=== PATIENT | female | born 1945 | race Caucasian/White ===

== ENCOUNTER 2016-12-29 17:04 | Observation (INO) | payer OTHER ==
[~2016-12-29] VITALS: Ht 162.6 cm; Wt 89.3 kg
--- NOTE | 2016-12-29 17:55 | DIAGNOSTIC IMAGING REPORT ---
PROCEDURE: XR CHEST 2 VIEW INDICATION: CHEST PAIN TECHNIQUE: PA and lateral views. COMPARISON: Chest 05/26/2014 FINDINGS: The lungs are clear. Cardiovascular structures are normal. Bony thorax is unremarkable. No significant interval change. IMPRESSION: 1. Negative chest.
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
--- NOTE | 2016-12-29 18:39 | ED ORDER SUMMARY ---
..... Patient: ULISES MONK OrderSheet [facility] VisitID: [id number] [address] [place] [address] 71y, F Registration Date/Time: 12/29/2016 ORDER SHEET Weight: 81.6 kg (stated) Allergies: Penicillin, Lorazepam, Narcotics GENERAL ORDERS: Chest 2V Urgent (17:12/29/2016 PHutchinson DO) (Ack 17:29 KHoerner) (18:01 ASchmuck) Degreaser Operator (Continuous) (17:12/29/2016 PHutchinson DO) (17:28 ASchmuck) UA-Culture if indicated Urgent (17:12/29/2016 PHutchinson DO) (Ack 17:26 KHoerner) (19:02 ASchmuck) Cardiac Panel Stat (17:12/29/2016 PHutchinson DO) (Ack 17:26 KHoerner) (17:30 ASchmuck) BNP Urgent (17:12/29/2016 PHutchinson DO) (Ack 17:26 KHoerner) (17:30 ASchmuck) D-Dimer Urgent (17:12/29/2016 PHutchinson DO) (Ack 17:26 KHoerner) (17:30 ASchmuck) Amylase Urgent (17:12/29/2016 PHutchinson DO) (Ack 17:27 KHoerner) (17:30 ASchmuck) PT with INR Urgent (17:12/29/2016 PHutchinson DO) (Ack 17:29 KHoerner) (17:31 ASchmuck) Lipase Urgent (17:12/29/2016 PHutchinson DO) (Ack 17:27 KHoerner) (17:31 ASchmuck) Oxygen (2 L/min) (NC) (17:12/29/2016 PHutchinson DO) (17:28 ASchmuck) Pulse oximeter (17:12/29/2016 PHutchinson DO) (17:28 ASchmuck) EKG - ER Stat (17:12/29/2016 PHutchinson DO) (17:29 ASchmuck) Vitals (17:07 12/29/2016 [facility] DO) ([facility] Call (Place call to): (Dr Kelly) (18:22 12/29/2016 [facility]) (18[facility] MEDICATION ORDERS: Aspirin PO 325 mg (only if not yet taken) (17:07 12/29/2016 [facility] DO) (Cancelled: Physician Order17:36 [facility] NitroGLYCERIN Paste Topical 1 in. (NOW, to CW) (17:32 12/29/2016 [facility] DO) (Ack 17:36 [facility]) (18:[facility] GI Cocktail WHITE PO 30 mL with Lidocaine Viscous Mouth/Throat 15 mL, Maalox Plus Oral 15 mL (NOW) (17:32 12/29/2016 [facility]) (Ack 17:36 [facility] ([facility] IV FLUIDS: IV NS : initial bolus 500 mL (1000 mL/hr), then 250 mL/hr for X2 (NOW) (17:07 12/29/2016 [facility]) (Ack 17:36 [facility]) (18:00 AScuck) Protonix IVP 40mg 40 mg (Mix in NS 10ml over 2min) (17:33 12/29/2016 [facility]) (Ack 17:36 [facility]) (18:00 AScuck) Dilaudid IV 0.5 mg (HIGH ALERT MEDICATION, NOW) (19:42 12/29/2016 [facility]) (20:15 [facility]) Zofran IV 4 mg (NOW) (19:42 12/29/2016 [facility]) (20:15 [facility]) Benadryl IV 50 mg (NOW) (20:14 12/29/2016 [facility] verbal order read back to [facility]) (20:15 [facility]) ORDER SHEET NOTES: [Electronically signed by Markell Looney DO (21:19 12/29/2016)] [Electronically signed by Rocio Choe (21:44 12/29/2016)] [Electronically locked/signed by Rocio Choe (21:44 12/29/2016)]
--- NOTE | 2016-12-29 18:39 | ED CLINICAL REPORT ---
Clinical Report - Physicians/Mid Levels [facility] [address] [place] [address] 12/29/2016 17:06 Patient: ULISES MONK Time Seen: 17:06. Arrived- By ambulance. Historian- patient and EMS personnel. HISTORY OF PRESENT ILLNESS Chief Complaint: CHEST PAIN. At its maximum, severity described as moderate. When seen in the E.D., severity described as moderate. Modifying factors. Not worsened by anything. Not relieved by anything. This started today at about 07:00 AM and is still present. It was gradual in onset and has been constant and waxing/waning. Onset during light activity. It is described as dull and it is described as located in the right chest, central chest and left chest area. No radiation. No vomiting, difficulty breathing or diaphoresis. Similar symptoms previously: ( has had different chest pain, but has had some prior radicular pain from thoracic disc / nerve injury). Recent medical care: Not recently seen/assessed. REVIEW OF SYSTEMS The patient is post-menopausal. No fever, chills, cough, pedal edema or calf pain. No fainting episodes, headache, sore throat, blurred vision or abdominal pain. No black stools, difficulty with urination, skin rash, enlarged lymph nodes or bloody stools. All systems otherwise negative, except as recorded above. PAST HISTORY Problems: Arthritis. Back Pain. Depression. Mild COPD Surgeries: Appendectomy. Back Surgery. Hysterectomy. Knee Surgery. Oophorectomy. Salpingectomy. Tonsillectomy & Adenoidectomy. Medications: Vitamin D3 Oral. Spiriva HandiHaler Inhalation (takes occassionally). Magan red. Calcium Citrate + Oral. Multivitamins Oral. Aspir-81 Oral (Tablet Delayed Release 81 mg) 1 tablet, daily. Triazolam Oral 0.125 mg, at bedtime. TraZODone HCl Oral 50 mg, at bedtime. Sertraline HCl Oral 30 mg, daily. NIFEdipine Oral 30 mg, daily. Baclofen 20 mg, daily. Albuterol Sulfate Inhalation. Allergies: Lorazepam. Narcotics.(itching) (other than vicoden and dilaudid. Fentanyl gives angioedema.) Penicillin. SOCIAL HISTORY Occasional alcohol use. No drug use. Residence: [place]. Patient is employed. 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 ADDITIONAL NOTES The nursing notes have been reviewed. PHYSICAL EXAM Vital Signs: 12/29/2016 17:27 Temp: 98.4 F. 12/29/2016 17:24 BP: 139/84. HR: 80. RR: 20. O2 saturation: 94%. Appearance: Alert. Oriented X3. No acute distress. Eyes: Pupils equal, round and reactive to light. Eyes normal inspection. No scleral icterus or pale conjunctivae. ENT: Pharynx normal. Neck: Normal inspection. Neck supple. CVS: Normal heart rate and rhythm. Heart sounds normal. Pulses normal. Respiratory: No respiratory distress. Breath sounds normal. Chest nontender. No chest pain reproduced on physical exam, splinting, decreased air movement, rales or rhonchi. No wheezes. Abdomen: Soft and nontender. No mass. Back: The patient has a small surgical scar located in the upper right thoracic area. Skin: Skin warm and dry. Normal skin color. Normal skin turgor. Extremities: Extremities exhibit normal ROM. No lower extremity edema. Neuro: Oriented X 3. LABS, X-RAYS, AND EKG EKG: EKG time: (16:22 - DONE BY [facility]). Normal sinus rhythm. Normal P waves. Normal ASHUTOSH. Normal QRS complex. Normal axis. Non-specific ST segment / T wave abnormalities. Non-specific T wave flattening in lead aVL and V2. ID dep vs subtle ST elevation. The study has been interpreted contemporaneously by me. The EKG appears to be a good tracing. EKG #2: EKG time: (17:18). Normal sinus rhythm. Rate: 75. Normal P waves. Normal ASHUTOSH. Normal QRS complex. Normal axis. Non-specific ST segment / T wave abnormalities. ID Depression vs subtle ST elev inferiorly. EKG unchanged when compared with prior EKG. The study has been interpreted contemporaneously by me. The EKG appears to be a good tracing. Rhythm Strip #1: Normal sinus rhythm. Regular rhythm. Narrow QRS complexes. No ectopy. Chest X-ray: No acute disease. Normal lung markings present. Normal heart size. Mediastinum normal. Great vessels normal. No infiltrate. Views: PA and lateral. Technique: good. The X-rays were interpreted contemporaneously by me. Laboratory Tests: UA-Culture if indicated: (TYREL: 12/29/2016 19:01) ( [facility] 12/29[facility] 19[facility]43) Final results Test Result Flag Units (Reference) URINE COLOR YELLOW URINE APPEARANCE CLEAR URINE GLUCOSE NEGATIVE (NEGATIVE) URINE BILIRUBIN NEGATIVE (NEGATIVE) URINE KETONE NEGATIVE (NEGATIVE) URINE SPECIFIC GRAVITY 1.015 (1.010-1.030) URINE PH 5.5 (5.0-8.0) URINE PROTEIN NEGATIVE (NEGATIVE) URINE UROBILINOGEN 0.2 EU/dL (0.2-1.0) URINE NITRITE NEGATIVE (NEGATIVE) URINE BLOOD TRACE-INTACT (NEGATIVE) URINE LEUK ESTERASE POSITIVE (NEGATIVE) URINE RBC RARE rbc/hpf (0-1) URINE WBC 5-10 wbc/hpf (0-1) WITH CLUMPING URINE EPITHELIAL CELLS RARE EPI/hpf (0-5) URINE BACTERIA FEW (1+) (NONE SEEN) URINE COMMENT CULTURE INDICATED URINE CULTURES ARE SET-UP BASED ON THE FOLLOWING CRITERIA:POSITIVE NITRITEPOSITIVE LEUKOCYTE ESTERASEGREATER THAN 10 WHITE BLOOD CELLSMODERATE (2+) OR GREATER BACTERIA CBC w Diff: (TYREL: 12/29/2016 17:30) ( [facility] 12/29/2016 17:47) Final results Test Result Flag Units (Reference) WHITE BLOOD COUNT 8.9 K/uL (4.5-11.5) RED BLOOD COUNT 4.42 M/uL (4.00-5.20) HEMOGLOBIN 13.3 gm/dL (12.0-16.0) HEMATOCRIT 40.0 % (36.0-46.0) MEAN CELL VOLUME 90 fL (80-100) MEAN CORPUSCULAR HGB 30 pg (26-34) MEAN CORPUSCULAR HGB CONC 33 g/dL (31-37) RED CELL DISTRIBUTION WIDTH 13.3 % (11.6-14.8) PLATELET COUNT 221 K/uL (150-400) NEUTROPHIL % 78.5 H % (50-75) LYMPH % 12.4 L % (25-40) MONO % 7.7 % (3-14) EOSINOPHIL % 1.2 % (0-4) BASOPHIL % 0.2 % (0-2) PT with INR: (TYREL: 12/29/2016 17:30) ( [facility] 12/29/2016 18:09) Final results Test Result Flag Units (Reference) INR 0.9 (0.8-1.2) Low Intensity Therapy: INR 1.5-2.0 PT range 18.5-23.1Mod.Intensity Therapy: INR 2.0-3.0 PT range 23.1-31.5High Intensity Therapy: INR 2.5-3.5 PT range 27.4-35.5High Intensity Therapy 2: INR 3.0-4.0 PT range 31.5-39.3 D-DIMER QUANTITATIVE < 0.27 L ug/mLFEU (0.27-0.52) The primary value of this quantitative assay relates toits negative predictive value (i.e. exclusion) of pulmonaryembolism/deep vein thrombosis/DIC.Elevated levels of d-dimer may also occur with:, age, cancer, inflammation, liver disease,post-op, infection, hematoma, coronary disease, peripheralarteriopathy, bleeding disorders and thrombolytic treatment.Results should be correlated with other clinical andradiological data.Testing Methodology: Latex Immunoassay Troponin-I: (TYREL: 12/29/2016 20:30) ( [facility] 12/29/2016 20:58) Final results Test Result Flag Units (Reference) TROPONIN I <0.05 ng/mL (0.00-1.5) TROPONIN REFERENCE RANGE:<0.1 NEGATIVE0.1-1.5 INDETERMINANT>1.5 POSITIVE BNP: (TYREL: 12/29/2016 17:30) ( [facility] 12/29/2016 18:13) Final results Test Result Flag Units (Reference) B-TYPE NATRIURETIC PEPTIDE 31.1 pg/ml (5-100) CHEM 13 PANEL: (TYREL: 12/29/2016 17:30) ( [facility] 12/29/2016 18:11) Final results Test Result Flag Units (Reference) GLUCOSE 86 mg/dL (70-110) BUN 23 H mg/dL (7-18) CREATININE 0.8 mg/dL (0.6-1.3) Estimated GFR >60 mL/min Estimated GFR- >60 mL/min Note: Persistent reduction over 3 months in eGFR<60 mL/min/1.73 m2 defines CKD. Patients with eGFR values>=60 mL/min/1.73 m2 may also have CKD if evidence ofpersistent proteinuria. Additional information may be foundat www.kidney.org. SODIUM 140 mmol/L (136-145) POTASSIUM 4.1 mmol/L (3.5-5.1) CHLORIDE 105 mmol/L (98-107) CARBON DIOXIDE 29 mmol/L (21-32) CALCIUM 8.7 mg/dL (8.5-10.1) TOTAL PROTEIN 7.6 g/dL (6.4-8.2) ALBUMIN 3.4 g/dL (3.3-5.0) BILIRUBIN, TOTAL 0.2 mg/dL (0.0-1.0) ALKALINE PHOSPHATASE 86 U/L (46-116) AST (SGOT) 21 U/L (15-37) ALT (SGPT) 33 U/L (12-78) MAGNESIUM 2.1 mg/dL (1.8-2.4) LIPASE 191 U/L (73-393) AMYLASE 43 U/L (25-115) CPK 34 U/L (24-260) TROPONIN I <0.05 L ng/mL (0.00-1.5) TROPONIN REFERENCE RANGE:<0.1 NEGATIVE0.1-1.5 INDETERMINANT>1.5 POSITIVE . Microbiology: Urine culture ordered. Pulse Oximetry: 12/29/2016 17:24 O2 saturation: 94%. (FIO2 - room air). Interpretation: hypoxemia. PROGRESS AND PROCEDURES Course of Care: GI Cocktail 30 mL PO given. Nitroglycerin 1 inch paste given. ASA 324 mg - given prior to arrival PO given. Benadryl 50 mg IVP given. Zofran 4 mg IVP given. Protonix 40 mg IVP given. Lovenox 80 mg subQ given. Dilaudid 0.[address] Baeza recommends usual rule out ACS procedure with repeat enzymes, ecg and hopefully echocardiogram (mild ID depression) 20:00 12/29/16. Still mild chest discomfort of unclear etiology. Improved after dilaudid and benadryl. Urine results back after pt admitted. Will wait for culture before starting abx - per Dr Florian. Discussed case with on-call health care provider, (Iveth (cardiology) call returned 18:33). Reviewed test results. Agreed upon treatment plan. Discussed case with health care provider (Anival - discussed case in person - requests that I consult mainframe applications developer cardiology for subtle ecg changes). Patient/family counseled. Old ED records reviewed. Disposition: Observation in Acute Care. Condition: stable and improved. CLINICAL IMPRESSION Precordial chest pain .12 lead EKG performed. Possible acute urinary tract infection with cystitis. INSTRUCTIONS Follow-up with: Ariane Lazaro MD, Cardiology, , [facility] - Cardiology, [address] [place] [address] [address] [facility], [place] [phone] (Electronically signed by Markell Looney DO 12/29/2016 21:19)
--- NOTE | 2016-12-29 18:39 | ED ORDER SUMMARY ---
..... Patient: ULISES MONK OrderSheet [facility] VisitID: [id number] [address] [place] [address] 71y, F Registration Date/Time: 12/29/2016 ORDER SHEET Weight: 81.6 kg (stated) Allergies: Penicillin, Lorazepam, Narcotics GENERAL ORDERS: Chest 2V Urgent (17:12/29/2016 PHutchinson DO) (Ack 17:29 KHoerner) (18:01 ASchmuck) Gyroscopic Instrument Mechanic (Continuous) (17:12/29/2016 PHutchinson DO) (17:28 ASchmuck) UA-Culture if indicated Urgent (17:12/29/2016 PHutchinson DO) (Ack 17:26 KHoerner) (19:02 ASchmuck) Cardiac Panel Stat (17:12/29/2016 PHutchinson DO) (Ack 17:26 KHoerner) (17:30 ASchmuck) BNP Urgent (17:12/29/2016 PHutchinson DO) (Ack 17:26 KHoerner) (17:30 ASchmuck) D-Dimer Urgent (17:12/29/2016 PHutchinson DO) (Ack 17:26 KHoerner) (17:30 ASchmuck) Amylase Urgent (17:12/29/2016 PHutchinson DO) (Ack 17:27 KHoerner) (17:30 ASchmuck) PT with INR Urgent (17:12/29/2016 PHutchinson DO) (Ack 17:29 KHoerner) (17:31 ASchmuck) Lipase Urgent (17:12/29/2016 PHutchinson DO) (Ack 17:27 KHoerner) (17:31 ASchmuck) Oxygen (2 L/min) (NC) (17:12/29/2016 PHutchinson DO) (17:28 ASchmuck) Pulse oximeter (17:12/29/2016 PHutchinson DO) (17:28 ASchmuck) EKG - ER Stat (17:12/29/2016 PHutchinson DO) (17:29 ASchmuck) Vitals (17:07 12/29/2016 [facility] DO) ([facility] Call (Place call to): (Dr Kelly) (18:22 12/29/2016 [facility]) [facility] MEDICATION ORDERS: Aspirin PO 325 mg (only if not yet taken) (17:07 12/29/2016 [facility] DO) (Cancelled: Physician Order17:36 [facility] NitroGLYCERIN Paste Topical 1 in. (NOW, to CW) (17:32 12/29/2016 [facility] DO) (Ack 17:36 [facility]) (18:[facility] GI Cocktail WHITE PO 30 mL with Lidocaine Viscous Mouth/Throat 15 mL, Maalox Plus Oral 15 mL (NOW) (17:32 12/29/2016 [facility]) (Ack 17:36 [facility] (18:00 [facility] IV FLUIDS: IV NS : initial bolus 500 mL (1000 mL/hr), then 250 mL/hr for X2 (NOW) (17:07 12/29/2016 [facility]) (Ack 17:36 [facility]) (18:00 AScuck) Protonix IVP 40mg 40 mg (Mix in NS 10ml over 2min) (17:33 12/29/2016 [facility]) (Ack 17:36 [facility]) (18:00 AScuck) Dilaudid IV 0.5 mg (HIGH ALERT MEDICATION, NOW) (19:42 12/29/2016 [facility]) (20:15 [facility]) Zofran IV 4 mg (NOW) (19:42 12/29/2016 [facility]) (20:15 [facility]) Benadryl IV 50 mg (NOW) (20:14 12/29/2016 [facility] verbal order read back to [facility]) (20:15 [facility]) ORDER SHEET NOTES: [Electronically signed by Markell Looney DO (21:19 12/29/2016)] [Electronically signed by Rocio Choe (21:44 12/29/2016)] [Electronically locked/signed by Rocio Choe (21:44 12/29/2016)]
--- NOTE | 2016-12-29 18:39 | ED CLINICAL REPORT ---
Clinical Report - Physicians/Mid Levels [facility] [address] [place] [address] 12/29/2016 17:06 Patient: ULISES MONK Time Seen: 17:06. Arrived- By ambulance. Historian- patient and EMS personnel. HISTORY OF PRESENT ILLNESS Chief Complaint: CHEST PAIN. At its maximum, severity described as moderate. When seen in the E.D., severity described as moderate. Modifying factors. Not worsened by anything. Not relieved by anything. This started today at about 07:00 AM and is still present. It was gradual in onset and has been constant and waxing/waning. Onset during light activity. It is described as dull and it is described as located in the right chest, central chest and left chest area. No radiation. No vomiting, difficulty breathing or diaphoresis. Similar symptoms previously: ( has had different chest pain, but has had some prior radicular pain from thoracic disc / nerve injury). Recent medical care: Not recently seen/assessed. REVIEW OF SYSTEMS The patient is post-menopausal. No fever, chills, cough, pedal edema or calf pain. No fainting episodes, headache, sore throat, blurred vision or abdominal pain. No black stools, difficulty with urination, skin rash, enlarged lymph nodes or bloody stools. All systems otherwise negative, except as recorded above. PAST HISTORY Problems: Arthritis. Back Pain. Depression. Mild COPD Surgeries: Appendectomy. Back Surgery. Hysterectomy. Knee Surgery. Oophorectomy. Salpingectomy. Tonsillectomy & Adenoidectomy. Medications: Vitamin D3 Oral. Spiriva HandiHaler Inhalation (takes occassionally). Magan red. Calcium Citrate + Oral. Multivitamins Oral. Aspir-81 Oral (Tablet Delayed Release 81 mg) 1 tablet, daily. Triazolam Oral 0.125 mg, at bedtime. TraZODone HCl Oral 50 mg, at bedtime. Sertraline HCl Oral 30 mg, daily. NIFEdipine Oral 30 mg, daily. Baclofen 20 mg, daily. Albuterol Sulfate Inhalation. Allergies: Lorazepam. Narcotics.(itching) (other than vicoden and dilaudid. Fentanyl gives angioedema.) Penicillin. SOCIAL HISTORY Occasional alcohol use. No drug use. Residence: [place]. Patient is employed. 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 ADDITIONAL NOTES The nursing notes have been reviewed. PHYSICAL EXAM Vital Signs: 12/29/2016 17:27 Temp: 98.4 F. 12/29/2016 17:24 BP: 139/84. HR: 80. RR: 20. O2 saturation: 94%. Appearance: Alert. Oriented X3. No acute distress. Eyes: Pupils equal, round and reactive to light. Eyes normal inspection. No scleral icterus or pale conjunctivae. ENT: Pharynx normal. Neck: Normal inspection. Neck supple. CVS: Normal heart rate and rhythm. Heart sounds normal. Pulses normal. Respiratory: No respiratory distress. Breath sounds normal. Chest nontender. No chest pain reproduced on physical exam, splinting, decreased air movement, rales or rhonchi. No wheezes. Abdomen: Soft and nontender. No mass. Back: The patient has a small surgical scar located in the upper right thoracic area. Skin: Skin warm and dry. Normal skin color. Normal skin turgor. Extremities: Extremities exhibit normal ROM. No lower extremity edema. Neuro: Oriented X 3. LABS, X-RAYS, AND EKG EKG: EKG time: (16:22 - DONE BY [facility]). Normal sinus rhythm. Normal P waves. Normal ASHUTOSH. Normal QRS complex. Normal axis. Non-specific ST segment / T wave abnormalities. Non-specific T wave flattening in lead aVL and V2. TX dep vs subtle ST elevation. The study has been interpreted contemporaneously by me. The EKG appears to be a good tracing. EKG #2: EKG time: (17:18). Normal sinus rhythm. Rate: 75. Normal P waves. Normal ASHUTOSH. Normal QRS complex. Normal axis. Non-specific ST segment / T wave abnormalities. TX Depression vs subtle ST elev inferiorly. EKG unchanged when compared with prior EKG. The study has been interpreted contemporaneously by me. The EKG appears to be a good tracing. Rhythm Strip #1: Normal sinus rhythm. Regular rhythm. Narrow QRS complexes. No ectopy. Chest X-ray: No acute disease. Normal lung markings present. Normal heart size. Mediastinum normal. Great vessels normal. No infiltrate. Views: PA and lateral. Technique: good. The X-rays were interpreted contemporaneously by me. Laboratory Tests: UA-Culture if indicated: (TYREL: 12/29/2016 19:01) ( [facility] Final results Test Result Flag Units (Reference) URINE COLOR YELLOW URINE APPEARANCE CLEAR URINE GLUCOSE NEGATIVE (NEGATIVE) URINE BILIRUBIN NEGATIVE (NEGATIVE) URINE KETONE NEGATIVE (NEGATIVE) URINE SPECIFIC GRAVITY 1.015 (1.010-1.030) URINE PH 5.5 (5.0-8.0) URINE PROTEIN NEGATIVE (NEGATIVE) URINE UROBILINOGEN 0.2 EU/dL (0.2-1.0) URINE NITRITE NEGATIVE (NEGATIVE) URINE BLOOD TRACE-INTACT (NEGATIVE) URINE LEUK ESTERASE POSITIVE (NEGATIVE) URINE RBC RARE rbc/hpf (0-1) URINE WBC 5-10 wbc/hpf (0-1) WITH CLUMPING URINE EPITHELIAL CELLS RARE EPI/hpf (0-5) URINE BACTERIA FEW (1+) (NONE SEEN) URINE COMMENT CULTURE INDICATED URINE CULTURES ARE SET-UP BASED ON THE FOLLOWING CRITERIA:POSITIVE NITRITEPOSITIVE LEUKOCYTE ESTERASEGREATER THAN 10 WHITE BLOOD CELLSMODERATE (2+) OR GREATER BACTERIA CBC w Diff: (TYREL: 12/29/2016 17:30) ( [facility] 17[facility]47) Final results Test Result Flag Units (Reference) WHITE BLOOD COUNT 8.9 K/uL (4.5-11.5) RED BLOOD COUNT 4.42 M/uL (4.00-5.20) HEMOGLOBIN 13.3 gm/dL (12.0-16.0) HEMATOCRIT 40.0 % (36.0-46.0) MEAN CELL VOLUME 90 fL (80-100) MEAN CORPUSCULAR HGB 30 pg (26-34) MEAN CORPUSCULAR HGB CONC 33 g/dL (31-37) RED CELL DISTRIBUTION WIDTH 13.3 % (11.6-14.8) PLATELET COUNT 221 K/uL (150-400) NEUTROPHIL % 78.5 H % (50-75) LYMPH % 12.4 L % (25-40) MONO % 7.7 % (3-14) EOSINOPHIL % 1.2 % (0-4) BASOPHIL % 0.2 % (0-2) PT with INR: (TYREL: 12/29/2016 17:30) ( [facility] 12/29/2016 18:09) Final results Test Result Flag Units (Reference) INR 0.9 (0.8-1.2) Low Intensity Therapy: INR 1.5-2.0 PT range 18.5-23.1Mod.Intensity Therapy: INR 2.0-3.0 PT range 23.1-31.5High Intensity Therapy: INR 2.5-3.5 PT range 27.4-35.5High Intensity Therapy 2: INR 3.0-4.0 PT range 31.5-39.3 D-DIMER QUANTITATIVE < 0.27 L ug/mLFEU (0.27-0.52) The primary value of this quantitative assay relates toits negative predictive value (i.e. exclusion) of pulmonaryembolism/deep vein thrombosis/DIC.Elevated levels of d-dimer may also occur with:, age, cancer, inflammation, liver disease,post-op, infection, hematoma, coronary disease, peripheralarteriopathy, bleeding disorders and thrombolytic treatment.Results should be correlated with other clinical andradiological data.Testing Methodology: Latex Immunoassay Troponin-I: (TYREL: 12/29/2016 20:30) ( [facility] 12/29/2016 20:58) Final results Test Result Flag Units (Reference) TROPONIN I <0.05 ng/mL (0.00-1.5) TROPONIN REFERENCE RANGE:<0.1 NEGATIVE0.1-1.5 INDETERMINANT>1.5 POSITIVE BNP: (TYREL: 12/29/2016 17:30) ( [facility] 12/29/2016 18:13) Final results Test Result Flag Units (Reference) B-TYPE NATRIURETIC PEPTIDE 31.1 pg/ml (5-100) CHEM 13 PANEL: (TYREL: 12/29/2016 17:30) ( [facility] 12/29/2016 18:11) Final results Test Result Flag Units (Reference) GLUCOSE 86 mg/dL (70-110) BUN 23 H mg/dL (7-18) CREATININE 0.8 mg/dL (0.6-1.3) Estimated GFR >60 mL/min Estimated GFR- >60 mL/min Note: Persistent reduction over 3 months in eGFR<60 mL/min/1.73 m2 defines CKD. Patients with eGFR values>=60 mL/min/1.73 m2 may also have CKD if evidence ofpersistent proteinuria. Additional information may be foundat www.kidney.org. SODIUM 140 mmol/L (136-145) POTASSIUM 4.1 mmol/L (3.5-5.1) CHLORIDE 105 mmol/L (98-107) CARBON DIOXIDE 29 mmol/L (21-32) CALCIUM 8.7 mg/dL (8.5-10.1) TOTAL PROTEIN 7.6 g/dL (6.4-8.2) ALBUMIN 3.4 g/dL (3.3-5.0) BILIRUBIN, TOTAL 0.2 mg/dL (0.0-1.0) ALKALINE PHOSPHATASE 86 U/L (46-116) AST (SGOT) 21 U/L (15-37) ALT (SGPT) 33 U/L (12-78) MAGNESIUM 2.1 mg/dL (1.8-2.4) LIPASE 191 U/L (73-393) AMYLASE 43 U/L (25-115) CPK 34 U/L (24-260) TROPONIN I <0.05 L ng/mL (0.00-1.5) TROPONIN REFERENCE RANGE:<0.1 NEGATIVE0.1-1.5 INDETERMINANT>1.5 POSITIVE . Microbiology: Urine culture ordered. Pulse Oximetry: 12/29/2016 17:24 O2 saturation: 94%. (FIO2 - room air). Interpretation: hypoxemia. PROGRESS AND PROCEDURES Course of Care: GI Cocktail 30 mL PO given. Nitroglycerin 1 inch paste given. ASA 324 mg - given prior to arrival PO given. Benadryl 50 mg IVP given. Zofran 4 mg IVP given. Protonix 40 mg IVP given. Lovenox 80 mg subQ given. Dilaudid 0.[address] Baeza recommends usual rule out ACS procedure with repeat enzymes, ecg and hopefully echocardiogram (mild TX depression) 20:00 12/29/16. Still mild chest discomfort of unclear etiology. Improved after dilaudid and benadryl. Urine results back after pt admitted. Will wait for culture before starting abx - per Dr Florian. Discussed case with on-call health care provider, (Iveth (cardiology) call returned 18:33). Reviewed test results. Agreed upon treatment plan. Discussed case with health care provider (Anival - discussed case in person - requests that I consult psychologist personnel cardiology for subtle ecg changes). Patient/family counseled. Old ED records reviewed. Disposition: Observation in Acute Care. Condition: stable and improved. CLINICAL IMPRESSION Precordial chest pain .12 lead EKG performed. Possible acute urinary tract infection with cystitis. INSTRUCTIONS Follow-up with: Ariane Lazaro MD, Cardiology, , [facility] - Cardiology, [address] [place] [address] [address] [facility], [place] [phone] (Electronically signed by Markell Looney DO 12/29/2016 21:19)
--- NOTE | 2016-12-29 20:56 | HISTORY AND PHYSICAL ---
ADMITTED: 12/29/2016 CHIEF COMPLAINT: 1. Chest pain HISTORY OF PRESENT ILLNESS: This is a 71-year-old white female who developed the chest pain in the morning while she woke up. The pain was across the chest, but she says it goes to the back and is not sure whether originates from the back to the chest or from the chest to the back. Severity 3/10, ongoing. The patient states she was active in the last 3 weeks with the yard work and did a lot of lifting and pushing. The patient worsens with inspiration. Also has a mild tenderness in chest area. No sweats or palpitations, nausea or vomiting. No shortness of breath. No dizziness. 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 Surgical history: Remarkable for disk herniation repair, bilateral knee placement, foot surgery, hand surgery, hysterectomy, tonsillectomy and appendectomy. Hospitalization: Last one was 2006 for knee placement. MEDICATIONS: 1. Aspirin 81 mg daily. 2. Triazolam 0.125 mg at bedtime. 3. Trazodone 50 mg at bedtime. 4. Zoloft 30 mg daily. 5. Nifedipine 30 mg daily. 6. Baclofen 20 mg daily. 7. Albuterol inhaler 2 puffs 4 times a day. ALLERGIES: THE PATIENT ALLERGIC TO: 1. LORAZEPAM. 2. NARCOTICS EXCEPT DILAUDID AND VICODIN. 3. PENICILLIN. SOCIAL HISTORY: The patient is single, has no kids, lives with her sister. Smoking: One pack a day for 20 years, quit 2 years ago. No history of alcohol or drug abuse. FAMILY HISTORY: Noncontributory. REVIEW OF SYSTEMS: The patient has been losing weight. No difficulty with vision or hearing. No runny nose or congestion. No cough or sore throat. No nausea, vomiting, indigestion or abdominal pain. Normal regular bowel movements. No dysuria, frequency or incontinence. Complains of upper back pain, which is chronic. No headaches. No dizziness. No tingling, no numbness. No localized muscle weakness. No syncope. PHYSICAL EXAMINATION: VITAL SIGNS: Blood pressure is 139/84, pulse 80, respirations 20, oxygen saturation 94% on room air. GENERAL APPEARANCE: Well-developed, well-nourished, good body build, no acute distress. HEENT: Ears: Normal tympanic membranes. Mouth: Normal hypopharynx, no exudation, no erythema. Nose: Normal mucosa. NECK: Supple. No JVD. No carotid bruit. No palpable mass. SKIN: Warm and dry with good turgor. LUNGS: Clear to auscultation. No rhonchi, wheezing or crackles. HEART: Regular S1 and S2. No murmur. No S3 was heard. ABDOMEN: Soft, nontender. Bowel sounds are positive. EXTREMITIES: No edema. Good peripheral pulses. No signs of DVT or cyanosis. MUSCULOSKELETAL: Grossly within normal limits. NEUROLOGIC: Alert and oriented x3. Cranial nerves are grossly intact. No motor deficits. Pupils are equal, round, and reactive to light. Extraocular movements are intact. No nystagmus. No cerebellar signs. Deep tendon reflexes are bilateral and symmetric. LAB/IMAGING: Labs: EKG: Has some mild ST elevations and also mild MN depressions in the inferior leads, which is a little bit prominent compared to the EKG from 05/2014. White blood count is 8.9, hemoglobin is 13.3, hematocrit is 40 and platelet count is 221,000. INR is 0.9. BNP is 31. Glucose is 86, BUN is 23, creatinine 0.8, sodium is 140, potassium is 4.1, chloride is 105, CO2 is 29. Liver enzymes unremarkable. Troponin is less than 0.05. IMPRESSION: 1. Atypical chest pain. 2. Hypertension. 3. Chronic obstructive pulmonary disease. 4. Disk herniation in T-spine. PLAN: Dr. Looney had a discussion with Dr. Cardozo, a chapter relations administrator in [facility]. The patient to be admitted. Check the cardiac enzyme series and also have echocardiogram. The patient will have Dilaudid for the chest pain that responded to nitroglycerin. We will do cardiac enzyme series and continue aspirin and outpatient medication and we will admit to observation.
[2016-12-29 21:15] VITALS: BP 143/77
--- NOTE | 2016-12-29 21:45 | ED MAR SUMMARY ---
..... Medication Administration Record [facility] [address] [place] [address] Patient: ULISES MONK Visit ID: [id number] 71y, F Weight: 81.6 kg Height/Length: 64 in BMI: 30.9 ALLERGIES: Narcotics, Lorazepam, Penicillin Given 17:55 12/29/2016 Rocio Choe, Medication Administered: GI COCKTAIL WHITE [PO] (SIMETHICONE), Dose: 30 mL Oral Suspension PO. Medication Ordered: GI Cocktail WHITE PO 30 mL with Lidocaine Viscous Mouth/Throat 15 mL, Maalox Plus Oral 15 mL (NOW). Start 17:57 12/29/2016 Rocio Choe,, Stop 19:25 12/29/2016 Rocio Choe, Medication Administered: IV NS (SALINE), Dose: IV Fluids over 30 minute(s), Rate: 1000 mL/hr, Dispensed: 1000 mL bag, Site: #1 right hand. Medication Ordered: IV NS : initial bolus 500 mL (1000 mL/hr), then 250 mL/hr for X2 (NOW). Given 18:00 12/29/2016 Rocio Choe, Medication Administered: PROTONIX [IVP] (PANTOPRAZOLE SODIUM), Dose: 40 mg IVP over 3 minute(s), Site: #1 right hand. Medication Ordered: Protonix IVP 40mg 40 mg (Mix in NS 10ml over 2min). Given 18:03 12/29/2016 Rocio Choe, Medication Administered: NITROGLYCERIN PASTE [TOPICAL], Dose: 1 in. Paste Topical. Medication Ordered: NitroGLYCERIN Paste Topical 1 in. (NOW, to CW). Given 20:11 12/29/2016 Rocio Choe, Medication Administered: BENADRYL [IVP] (DIPHENHYDRAMINE HCL), Dose: 50 mg IVP over 1 minute(s), Site: #1 right hand. Medication Ordered: Benadryl IV 50 mg (NOW). Given 20:12 12/29/2016 Rocio Choe, Medication Administered: ZOFRAN [IVP] (ONDANSETRON HCL), Dose: 4 mg IVP over 1 minute(s), Site: #1 right hand. Medication Ordered: Zofran IV 4 mg (NOW). Given 20:14 12/29/2016 Rocio Choe, Medication Administered: DILAUDID [IVP] (HYDROMORPHONE HCL PF), Dose: 0.5 mg IVP over 30 second(s), Site: #1 right hand. Medication Ordered: Dilaudid IV 0.5 mg (HIGH ALERT MEDICATION, NOW).
--- NOTE | 2016-12-29 21:45 | ED DISCHARGE INSTRUCTIONS ---
Patient: ULISES MONK General Instructions [facility] VisitID: [id number] [address] [place] [address] 71y, F Registration Date/Time: 12/29/2016 Precordial chest pain .12 lead EKG performed. INSTRUCTIONS Follow-up with: Ariane Lazaro MD, Cardiology, , [facility] - Cardiology, [address] [place] [address], [place] [id number] (Electronically signed by Markell Looney DO 12/29/2016 21:19)
--- NOTE | 2016-12-29 21:45 | ED DISCHARGE INSTRUCTIONS ---
Patient: ULISES MONK General Instructions [facility] VisitID: [id number] [address] [place] [address] 71y, F Registration Date/Time: 12/29/2016 Precordial chest pain .12 lead EKG performed. INSTRUCTIONS Follow-up with: Ariane Lazaro MD, Cardiology, , [facility] - Cardiology, [address] [place] [address], [place] [id number] (Electronically signed by Markell Looney DO 12/29/2016 21:19)
--- NOTE | 2016-12-29 21:45 | ED MED RECONCILIATION SUMMARY ---
Patient: ULISES MONK Medication Reconciliation Report [facility] VisitID: [id number] [address] [place] [address] 71y, F Registration Date/Time: 12/29/2016 Weight: 81.6 kg Height/Length: 64 in. BMI: 30.9 ALLERGIES: Lorazepam, Narcotics, Penicillin The patient's Home Medications are listed below: THE FOLLOWING MEDICATIONS NEED TO BE RECONCILED: Albuterol Sulfate Inhalation Aspir-81 Oral (81 mg) 1 tablet, daily Baclofen 20 mg, daily Calcium Citrate + Oral Magan red Multivitamins Oral NIFEdipine Oral 30 mg, daily Sertraline HCl Oral 30 mg, daily Spiriva HandiHaler Inhalation, takes occassionally TraZODone HCl Oral 50 mg, at bedtime Triazolam Oral 0.125 mg, at bedtime Vitamin D3 Oral The source(s) of the original Home Medication information: patient The following Medications were given to the patient in the Emergency Department: IV NS IV Fluids bolus 0, then 1000 mL/hr, administered: 12/29/2016 5:57:00 PM GI COCKTAIL WHITE [PO] PO 30 mL, administered: 12/29/2016 5:55:00 PM PROTONIX [IVP] IVP 40 mg, administered: 12/29/2016 6:00:00 PM NITROGLYCERIN PASTE [TOPICAL] Topical 1 in., administered: 12/29/2016 6:03:00 PM Benadryl [IVP] IVP 50 mg, administered: 12/29/2016 8:11:00 PM Zofran [IVP] IVP 4 mg, administered: 12/29/2016 8:12:00 PM Dilaudid [IVP] IVP 0.5 mg, administered: 12/29/2016 8:14:00 PM The following Medications were prescribed to the patient: None.
--- NOTE | 2016-12-29 21:45 | ED MAR SUMMARY ---
..... Medication Administration Record [facility] [address] [place] [address] Patient: ULISES MONK Visit ID: [id number] 71y, F Weight: 81.6 kg Height/Length: 64 in BMI: 30.9 ALLERGIES: Narcotics, Lorazepam, Penicillin Given 17:55 12/29/2016 Rocio Choe, Medication Administered: GI COCKTAIL WHITE [PO] (SIMETHICONE), Dose: 30 mL Oral Suspension PO. Medication Ordered: GI Cocktail WHITE PO 30 mL with Lidocaine Viscous Mouth/Throat 15 mL, Maalox Plus Oral 15 mL (NOW). Start 17:57 12/29/2016 Rocio Choe,, Stop 19:25 12/29/2016 Rocio Choe, Medication Administered: IV NS (SALINE), Dose: IV Fluids over 30 minute(s), Rate: 1000 mL/hr, Dispensed: 1000 mL bag, Site: #1 right hand. Medication Ordered: IV NS : initial bolus 500 mL (1000 mL/hr), then 250 mL/hr for X2 (NOW). Given 18:00 12/29/2016 Rocio Choe, Medication Administered: PROTONIX [IVP] (PANTOPRAZOLE SODIUM), Dose: 40 mg IVP over 3 minute(s), Site: #1 right hand. Medication Ordered: Protonix IVP 40mg 40 mg (Mix in NS 10ml over 2min). Given 18:03 12/29/2016 Rocio Choe, Medication Administered: NITROGLYCERIN PASTE [TOPICAL], Dose: 1 in. Paste Topical. Medication Ordered: NitroGLYCERIN Paste Topical 1 in. (NOW, to CW). Given 20:11 12/29/2016 Rocio Choe, Medication Administered: BENADRYL [IVP] (DIPHENHYDRAMINE HCL), Dose: 50 mg IVP over 1 minute(s), Site: #1 right hand. Medication Ordered: Benadryl IV 50 mg (NOW). Given 20:12 12/29/2016 Rocio Choe, Medication Administered: ZOFRAN [IVP] (ONDANSETRON HCL), Dose: 4 mg IVP over 1 minute(s), Site: #1 right hand. Medication Ordered: Zofran IV 4 mg (NOW). Given 20:14 12/29/2016 Rocio Choe, Medication Administered: DILAUDID [IVP] (HYDROMORPHONE HCL PF), Dose: 0.5 mg IVP over 30 second(s), Site: #1 right hand. Medication Ordered: Dilaudid IV 0.5 mg (HIGH ALERT MEDICATION, NOW).
--- NOTE | 2016-12-29 21:45 | ED MED RECONCILIATION SUMMARY ---
Patient: ULISES MONK Medication Reconciliation Report [facility] VisitID: [id number] [address] [place] [address] 71y, F Registration Date/Time: 12/29/2016 Weight: 81.6 kg Height/Length: 64 in. BMI: 30.9 ALLERGIES: Lorazepam, Narcotics, Penicillin The patient's Home Medications are listed below: THE FOLLOWING MEDICATIONS NEED TO BE RECONCILED: Albuterol Sulfate Inhalation Aspir-81 Oral (81 mg) 1 tablet, daily Baclofen 20 mg, daily Calcium Citrate + Oral Magan red Multivitamins Oral NIFEdipine Oral 30 mg, daily Sertraline HCl Oral 30 mg, daily Spiriva HandiHaler Inhalation, takes occassionally TraZODone HCl Oral 50 mg, at bedtime Triazolam Oral 0.125 mg, at bedtime Vitamin D3 Oral The source(s) of the original Home Medication information: patient The following Medications were given to the patient in the Emergency Department: IV NS IV Fluids bolus 0, then 1000 mL/hr, administered: 12/29/2016 5:57:00 PM GI COCKTAIL WHITE [PO] PO 30 mL, administered: 12/29/2016 5:55:00 PM PROTONIX [IVP] IVP 40 mg, administered: 12/29/2016 6:00:00 PM NITROGLYCERIN PASTE [TOPICAL] Topical 1 in., administered: 12/29/2016 6:03:00 PM Benadryl [IVP] IVP 50 mg, administered: 12/29/2016 8:11:00 PM Zofran [IVP] IVP 4 mg, administered: 12/29/2016 8:12:00 PM Dilaudid [IVP] IVP 0.5 mg, administered: 12/29/2016 8:14:00 PM The following Medications were prescribed to the patient: None.
--- NOTE | 2016-12-29 22:12 | Progress Note ---
Subjective General ADVANCED CARE PLAN History of Present Illness This is a 71-year-old white female who developed the chest pain in the morning while she woke up. The pain was across the chest, but she says it goes to the back and is not sure whether originates from the back to the chest or from the chest to the back. Severity 09/29, ongoing. The patient states she was active in the last 3 weeks with the yard work and did a lot of lifting and pushing. The patient worsens with inspiration. Also has a mild tenderness in chest area. No sweats or palpitations, nausea or vomiting. No shortness of breath. No dizziness. A discussion was undertaken with the patient regarding previous advance care arrangements/decisions. The following advanced directives were noted by the patient and discussed with me at the time of admission. ADVANCED DIRECTIVES: 1. Living well:Yes 2. POLST: No 3. CODE STATUS: Full Code 4. Durable Power Transmission Operator Health care: Yes 5. Donor card: Yes The patient has expressed interest in pursuing full resuscitative efforts at the time of cardiopulmonary arrest. The patient has been placed on a FULL CODE STATUS. The patient's wishes were documented in the chart and orders regarding the patient's wishes entered into the [employer] system. The "Advance Care Plan Document" was not distributed to patient to discuss with her family. Less than 30 minutes was spent in performing the above tasks and documentation of the patient's advanced care plan.
[2016-12-29] MEDS ORDERED: ASPIRIN EC LOW81 MG PO (22:44)
[2016-12-29] MEDS ORDERED: ALBUTEROL HFA60 DOSE IN (22:44)
[2016-12-29] MEDS ORDERED: CAL-CITRATE150 MG (22:45)
[2016-12-29] MEDS ORDERED: BACLOFEN20 MG PO (22:45)
[2016-12-29] MEDS ORDERED: MULTIVITAMIN1 TAB PO (22:46)
[2016-12-29] MEDS ORDERED: NIFEDIPINE ER30 MG PO (22:47)
[2016-12-29] MEDS ORDERED: SERTRALINE HCL25 MG PO (22:47)
[2016-12-29] MEDS ORDERED: SPIRIVA RE1.25 MCG/A (22:48)
[2016-12-29] MEDS ORDERED: TRIAZOLAM0.125 MG PO (22:49)
[2016-12-29] MEDS ORDERED: VITAMIN D-31000 UNIT PO (22:49)
[2016-12-29] MEDS ORDERED: TRAZODONE HCL50 MG PO (22:49)
[2016-12-30 02:45] VITALS: BP 96/57
[2016-12-30 06:49] VITALS: BP 121/64
--- NOTE | 2016-12-30 09:24 | DISCHARGE SUMMARY ---
ADMIT DATE: 12/29/2016 DISCHARGE DATE: 12/30/2016 DISCHARGE DIAGNOSES: 1. Atypical chest pain. 2. Hypertension. 3. Chronic obstructive pulmonary disease. 4. Disk herniation of the T-spine BRIEF HISTORY: This is a 71-year-old white female who was admitted last night, presented with chest pain, has a pressure tightness across the chest on the upper chest actually, started the morning before the admission, continuous pain. The pain did not respond to nitroglycerin and was severity 3 out of 10, but responded to Dilaudid IV. The patient stated that she was active in the last 3 weeks with yard work and states that the pain gets worse with inspiration and mild tenderness in the chest area, which was reproducible. No sweats or palpitations. No nausea or vomiting, no shortness of breath or dizziness. HOSPITAL COURSE: The emergency room physician, Dr. Looney consulted with Dr. Crabtree, hand plug shaper in [facility]. The plan was to have patient observation with cardiac enzyme series and repeat EKG do echocardiogram. Right now, the patient is chest pain free since yesterday, no shortness of breath, no nausea or vomiting, palpitations or shortness of breath and doing fine, ambulating and would like to go home. Repeat EKG shows a stable EKG with early repolarization, which shows ST elevations in the inferior leads, but downsloping and also improving the SC depression. Cardiac enzymes series is negative. PHYSICAL EXAMINATION: VITAL SIGNS: Temperature is 98.0, pulse is 65, respirations 18, blood pressure 121/64, pulse oximetry is 95% on 1 liter of oxygen. LUNGS: Clear to auscultation. No rhonchi or wheezing. HEART: Regular S1, S2. No murmur. No S3. ABDOMEN: Soft, nontender. Bowel sounds are positive. EXTREMITIES: No edema. DISCHARGE INSTRUCTIONS/MEDICATIONS: The patient will be discharged home to follow up with Dr. Miranda in [place] as an outpatient within 1 week. The patient will also arrange an echocardiogram to be done as an outpatient since echocardiogram cannot be done during the weekend here. The patient's symptoms resolved completely and I do not see any reason to keep her just for the echocardiogram. The patient will follow up the same medications as before. 1. Aspirin 81 mg daily. 2. Triazolam 0.125 mg at bedtime. 3. Trazodone 50 mg at bedtime. 4. Zoloft 25 mg daily. 5. Nifedipine 30 mg daily. 6. Baclofen 25 mg daily. 7. Albuterol inhaler 2 puffs 4 times a day. 8. The patient will have another set of cardiac enzymes around 10:30 or 11 and if it is negative, the patient can be discharged home.
== END 2016-12-30 10:30 | disposition home or self-care (01) ==
LOC: ED SRH 17:04 → TRANS SRH 18:31 → ACUTE2 SRH 20:45
PROVIDERS: ADMIT Emergency Medicine
DX: R07.9 Chest pain, unspecified (principal); M51.24 Other intervertebral disc displacement, thoracic region; I10 Essential (primary) hypertension; J44.9 Chronic obstructive pulmonary disease, unspecified; Z87.891 Personal history of nicotine dependence
CPT/HCPCS: 29230; 29247; 29263; 90004; 90047; 90074; 90100; 90148; 90469; 90616; 91320; 91556; 92235; 92530; 92610; 92720; 94060; 95059

== ENCOUNTER 2017-01-11 12:42 | Outpatient (CLI) | payer OTHER ==
[~2017-01-11 12:42] MED LIST: ALBUTEROL HFA60 DOSE IN; ASPIRIN EC LOW81 MG PO; BACLOFEN20 MG PO; CAL-CITRATE150 MG; MULTIVITAMIN1 TAB PO; NIFEDIPINE ER30 MG PO; SERTRALINE HCL25 MG PO; SPIRIVA RE1.25 MCG/A; TRAZODONE HCL50 MG PO; TRIAZOLAM0.125 MG PO; VITAMIN D-31000 UNIT PO
--- NOTE | 2017-01-12 15:44 | DIAGNOSTIC IMAGING REPORT ---
PROCEDURE: MR ABDOMEN W/WO CONTRAST INDICATION: BENIGN NEOPLASM OF UNSPECIFIED ADRENAL GLAND FINDINGS: The patient was scanned pre and postcontrast, however precontrast field of view was inadequate for diagnosis. The patient will be asked to return for repeat precontrast sequences. Full report using the current and subsequently obtained, corrected sequences will be generated after the patient returns. IMPRESSION: 1. Incomplete precontrast sequences. 2. The patient will be asked to return for further scanning, and a full report will be subsequently generated.
== END 2017-01-11 23:00 | disposition home or self-care (01) ==
LOC: RT SRH 12:42
PROC: 4A02XM4 Measurement of Cardiac Total Activity, External Approach (ICD-10-PCS; principal; 2017-01-11)
DX: R94.31 Abnormal electrocardiogram [ECG] [EKG] (principal); D35.00 Benign neoplasm of unspecified adrenal gland

== ENCOUNTER 2017-01-13 10:01 | Outpatient (CLI) | payer OTHER ==
--- NOTE | 2017-01-15 11:39 | DIAGNOSTIC IMAGING REPORT ---
PROCEDURE: MR ABDOMEN W/WO CONTRAST INDICATION: Adrenal nodule and pancreatic cyst. TECHNIQUE: Axial T2, axial T1 and out of phase, coronal T2 fat sat, coronal T1 gradient, axial T1 FAME pre and postcontrast. 15 ml ProHance gadolinium based IV contrast injected without complication. The patient returned twice for scanning to ensure full coverage of the affected areas. COMPARISON: 10/05/2014 FINDINGS: Somewhat amorphous nodular thickening involves the left adrenal gland between the medial and lateral limbs. Greatest diameter of the nodule is about 19 mm in approximate craniocaudal dimension. Transverse diameter is about 13 mm. Internal signal is similar to normal adrenal gland. It demonstrates less signal drop on out of phase sequences compared to the prior study, but no suspicious enhancement. The medial limb of the right adrenal gland is minimally thickened, stable. There is a 6 mm exophytic cystic structure arising from the ventral aspect of neck/proximal tail of the pancreas. The internal signal is homogeneous, following fluid, and there is no suspicious enhancement. Pancreatic duct is not dilated. The rest of the pancreas appears normal. The visible portions of the liver, gallbladder, spleen, lung bases, heart, retroperitoneal vessels, stomach, bowel loops, and mesentery are normal. Normal marrow signal in the visible vertebral bodies. IMPRESSION: 1. Stable left adrenal adenomatous change. 2. Stable, benign appearing 7 mm pancreatic cystic lesion. 3. Follow-up pancreatic lesion with contrast enhanced MRI in 2 years.
== END 2017-01-13 23:00 | disposition home or self-care (01) ==
LOC: MRI SRH 10:01
DX: D35.00 Benign neoplasm of unspecified adrenal gland (principal); K86.2 Cyst of pancreas